=== PATIENT | born 1965 ===

== ENCOUNTER → 2023-04-07 10:29 | Outpatient (REF) | payer SELFPAY ==
[2023-04-08 00:07] LABS: ACCA 81 units (0-90); ALCA 53 units (0-60); AMCA 79 units (0-100); Meconium Fentanyl 19.8 ng/gm (.); Meconium Norfentanyl 37.2 ng/gm (.); gASCA 47 units (0-50)
[2023-04-08 00:07] LABS: Meconium Fentanyl 19.8 ng/gm (.); Meconium Norfentanyl 37.2 ng/gm (.)
[2023-04-23 14:39] LABS: Meconium Fentanyl Screen Positive
[2023-04-23 14:39] LABS: Meconium Fentanyl Screen Positive
[2023-05-18 17:37] LABS: SERUM TEARS COLLECTION SPECIMEN PROCESSED
[2023-05-20 10:16] LABS: Internal QC Validated? YES +Cl - CLEAR BKGD; Pregnancy, Urine Negative Negative; Record Kit Lot#,Urine Preg 134
[2023-05-24 14:19] LABS: Hepatitis C Antibody Non-Reactive (Nonreactive)
== END ==
LOC: LABSURVEY 10:29
PROVIDERS: Visit Provider Pathology Anatomic Pathology & Clinical Pathology
DX: Z00.00 Encounter for general adult medical examination without abnormal findings (principal)
CPT/HCPCS: 80307; 81025; 83516; 86036; 86671; 86803; 87651

== ENCOUNTER → 2023-12-15 | Outpatient (CLI) | payer SELFPAY ==
[2023-12-29 12:47] LABS: Glucose GTT-30 minutes 150 mg/dL (110-170)
[2023-12-29 12:47] LABS: Glucose GTT- Fasting 98 mg/dL (74-106)
[2023-12-29 13:05] LABS: Glucose GTT- 1 Hour 200 mg/dL (120-170)
[2023-12-29 13:09] LABS: Glucose GTT- 3 Hour 105 mg/dL (74-106)
[2023-12-29 13:09] LABS: Glucose GTT- 2 Hour 150 mg/dL (70-120)
[2024-01-06 14:10] LABS: Internal QC Validated? YES +Cl - CLEAR BKGD; Pregnancy, Urine Negative Negative
[2024-01-06 14:12] LABS: Internal QC Validated? YES +Cl - CLEAR BKGD; Pregnancy, Serum, hCG Quali. POSITIVE Negative
[2024-01-11 09:34] LABS: Glucose Challenge Gest 1H 50g 150 mg/dL (70-140)
[2024-01-24 11:52] LABS: Albumin 3.5 g/dL (.); Alpha-1-Globulins 0.2 g/dL (.); Alpha-2-Globulins 0.8 g/dL (.); Gamma Globulin 0.8 g/dL (.); Immunoglobulin A 82 mg/dL (.); Immunoglobulin G 612 mg/dL (.); Immunoglobulin M 267 mg/dL (.); PROEL- TOTAL PROTEIN 6.4 g/dL (6.0-8.5)
== END | disposition home or self-care (01) ==
DX: Z00.00 Encounter for general adult medical examination without abnormal findings (principal)
CPT/HCPCS: 0352U; 81025; 82436; 82784; 82950; 82951; 82952; 84133; 84165; 84300; 84703; 85014; 85018; 85027; 86334; 87491; 87493; 87591